=== PATIENT | female | born 1930 | race Caucasian/White ===

== ENCOUNTER 2016-11-01 10:30 | Inpatient (IN) | payer MEDICARE, OTHER ==
[~2016-11-01] VITALS: Ht 144.8 cm; Wt 47.0 kg
[~2016-11-01 10:30] MED LIST: DEXL60CA2 PO; FER325 PO; ISOS30TA5 PO; METO200T4 PO; NIT4 SL; RAMI2.5C36 PO; SYN75 PO
[2016-11-14 09:18] VITALS: Ht 144.8 cm; Wt 47.0 kg
[2016-11-14] MEDS ORDERED: D5W-0.45 NACL + KCL 20 MEQ 1,000 ML IV SCH (15:00)
[2016-11-15] VITALS (25 sets, daily range): BP systolic 96–146; BP diastolic 48–75; PULSE 50–93; RESP 11–20
[2016-11-15] MEDS ORDERED: AMPICILLIN/SULB 3 GM/NS (PMX) 100 ML IVPB SCH (06:30)
[2016-11-15] MEDS ORDERED: ETOMIDATE 20 MG INJ ONE (07:00)
[2016-11-15] MEDS ORDERED: ROCURONIUM 50 MG INJ ONE (07:00)
[2016-11-15] MEDS ORDERED: GLYCOPYRROLATE 0.4 MG INJ ONE (07:00)
[2016-11-15] MEDS ORDERED: PROPOFOL 200 MG INJ ONE (07:00)
[2016-11-15] MEDS ORDERED: LIDOCAINE 2% (SDV) 5 ML INJ ONE (07:00)
[2016-11-15] MEDS ORDERED: SUCCINYLCHOLINE CHLORIDE 100 MG/5 ML SYG IV ONE (07:00)
[2016-11-15] MEDS ORDERED: NEOSTIGMINE 3 MG/3 ML SYRINGE ONE (07:00)
[2016-11-15] MEDS ORDERED: FENTAnyl 50 MCG/ML VIAL ONE (07:08)
--- NOTE | 2016-11-15 07:21 | HPN ---
Date/Time of Note Date/Time of Note DATE: 11/15/16 TIME: 07:21 Interval H&P Admission Note Pt. seen H&P reviewed: No system changes Pt. seen H&P reviewed. No system changes (I attest that I have seen and examined the patient and reviewed the operation in detail, as well as its risks , benefits and alternatives of the operation). I attest that I have seen and examined the patient and reviewed in detail the operation, and its associated risks, benefits and alternative. I have answered all the patient's questions to the best of my ability and the patient wishes to proceed. Please refer to rest of electronic medical record for additional updates. MILENA VIRK M.D. Nov 15, 2016 07:21
[2016-11-15 07:39] LABS: BASOPHIL # 0.1 10^3/ul (0.0-0.1); EOSINOPHILS # 0.3 10^3/ul (0.0-0.5); EOSINOPHILS % 4.9 % (0.0-7.0); HEMATOCRIT 44.4 % (37.0-47.0); HEMOGLOBIN 15.2 g/dl (12.0-16.0); LYMPHOCYTES # 1.2 10^3/ul (0.8-2.9); LYMPHOCYTES % 23.2 % (15.0-51.0); MEAN CORPUSCULAR HEMOGLOBIN 30.3 pg (29.0-33.0); MEAN CORPUSCULAR HGB CONC 34.2 g/dl (32.0-37.0); MEAN CORPUSCULAR VOLUME 88.6 fl (82.0-101.0); MEAN PLATELET VOLUME 9.2 fl (7.4-10.4); MONOCYTE # 0.7 10^3/ul (0.3-0.9); MONOCYTES % 12.6 % (0.0-11.0); NEUTROPHILS % 58.3 % (39.0-77.0); PLATELET COUNT 217 10^3/UL (140-440); RED BLOOD COUNT 5.01 10^6/ul (4.20-5.40); RED CELL DISTRIBUTION WIDTH 13.9 % (11.5-14.5); UNCORRECTED WBC 5.2 10^3/ul (4.8-10.8); WHITE BLOOD COUNT 5.2 10^3/ul (4.8-10.8)
[2016-11-15 07:54] LABS: CONDITION 1
[2016-11-15] MEDS ORDERED: PHENYLephrine (100 MCG/ML) 5ML SYG ONE (08:03)
[2016-11-15 08:17] LABS: CALCIUM 9.2 mg/dl (8.4-10.2); CREATININE 0.67 mg/dl (0.44-1.00); POTASSIUM 3.7 mmol/L (3.5-5.1)
[2016-11-15] MEDS ORDERED: MEPERIDINE 25 MG INJ IV PRN (09:00)
[2016-11-15] MEDS ORDERED: DIPHENHYDRAMINE 50 MG INJ IV PRN (09:00)
[2016-11-15] MEDS ORDERED: FENTAnyl 50 MCG/ML VIAL IV PRN (09:00)
[2016-11-15] MEDS ORDERED: HYDROmorphONE (0.2 MG/ML) 10ML SYG IV PRN ×2 (09:00)
[2016-11-15] MEDS ORDERED: ONDANSETRON 4 MG INJ IV PRN (09:00)
[2016-11-15 09:04] LABS: ADD UMIC YES; URINE BILIRUBIN (Dip) NEGATIVE (NEGATIVE); URINE BLOOD (Dip) TRACE (NEGATIVE); URINE COLOR LT. YELLOW (YELLOW); URINE GLUCOSE (Dip) NEGATIVE (NEGATIVE); URINE KETONES (Dip) NEGATIVE (NEGATIVE); URINE LEUKOCYTE ESTERASE (Dip) NEGATIVE (NEGATIVE); URINE NITRITE (Dip) NEGATIVE (NEGATIVE); URINE TOTAL PROTEIN (Dip) NEGATIVE (NEGATIVE); URINE UROBILINOGEN (Dip) 0.2 E.U./dL (0.1-1.0)
[2016-11-15 09:57] LABS: BACTERIA,URINE FEW
[2016-11-15] MEDS ORDERED: HYDROCODONE/APAP (5/325) TAB PO PRN (11:00)
[2016-11-15] MEDS ORDERED: HYDROmorphONE 1 MG/ML SYG IV PRN (11:00)
[2016-11-15] MEDS ORDERED: NA PHOSPHATE/BIPHOS 133 ML ENEMA PR PRN (11:00)
[2016-11-15] MEDS ORDERED: DOCUSATE SODIUM 100 MG CAP PO PRN (11:00)
[2016-11-15] MEDS ORDERED: BISACODYL 10 MG SUPP PR PRN (11:00)
[2016-11-15] MEDS: FENTAnyl 50 MCG/ML VIAL IV PRN ×3 (11:01→11:37)
[2016-11-15] MEDS: HYDROmorphONE (0.2 MG/ML) 10ML SYG IV PRN ×3 (11:02→11:38)
--- NOTE | 2016-11-15 11:12 | OPR ---
Date/Time of Note Date/Time of Note DATE: 11/15/16 TIME: 11:06 Operative Report Operative Findings [facility] INPATIENT OPERATIVE NOTE PLACE OF SERVICE: [facility] [place] DATE OF SURGERY: 11/15/2016 PREOPERATIVE DIAGNOSIS: 1. Biopsy-proven rectal cancer, moderately differentiated, grade 2. Perirectal lymph node involvement on staging axial images that included CT scan of the abdomen and pelvis. Clinical stage IIIc (T3b N2 M0). CEA 1.9; s/p completion of chemoradiation (5040 with concurrent Xeloda) ending on 05/11/16. Abdominal and pelvic MRI with IV and oral contrast on 07/07/16 showed slight decrease in size of mass and no obvious or new lymphadenopathy. S/p an otherwise uncomplicated but challenging oncologic laparoscopic laparoscopic hand-assisted very low anterior resection with takedown of splenic flexure of the colon with primary anastomosis and diverting loop ileostomy was performed with findings of rectal tumor approximately 3-4 cm from the anal verge without evidence of obvious metastatic disease on 08/16/16. 2. Breast cancer 2011. Status post mastectomy and hormonal therapy (no radiation therapy or chemotherapy per patient). 3. Anxiety 4. Hypertension 5. Coronary artery disease, status post angioplasty and stenting 3 approximate 10 years ago; transesophageal echocardiography without significant pathology per report 6. History of thyroid disease 7. Dyslipidemia 8. Hypertension 9. Arthritis 10. Mastectomy as above 11. Recent colonoscopy POSTOPERATIVE DIAGNOSIS: 1. Biopsy-proven rectal cancer, moderately differentiated, grade 2. Perirectal lymph node involvement on staging axial images that included CT scan of the abdomen and pelvis. Clinical stage IIIc (T3b N2 M0). CEA 1.9; s/p completion of chemoradiation (5040 with concurrent Xeloda) ending on 05/11/16. Abdominal and pelvic MRI with IV and oral contrast on 07/07/16 showed slight decrease in size of mass and no obvious or new lymphadenopathy. S/p an otherwise uncomplicated but challenging oncologic laparoscopic laparoscopic hand-assisted very low anterior resection with takedown of splenic flexure of the colon with primary anastomosis and diverting loop ileostomy was performed with findings of rectal tumor approximately 3-4 cm from the anal verge without evidence of obvious metastatic disease on 08/16/16. 2. Breast cancer 2011. Status post mastectomy and hormonal therapy (no radiation therapy or chemotherapy per patient). 3. Anxiety 4. Hypertension 5. Coronary artery disease, status post angioplasty and stenting 3 approximate 10 years ago; transesophageal echocardiography without significant pathology per report 6. History of thyroid disease 7. Dyslipidemia 8. Hypertension 9. Arthritis 10. Mastectomy as above 11. Recent colonoscopy OPERATION: Ileostomy takedown SURGEON: Milena Tejada M.D. CHIEF RELAY TESTER: 1. WICHO Leary ANESTHESIA: General endotracheal tube anesthesia ANESTHESIOLOGIST: Jitendra Cordon M.D. BRIEF SUMMARY: An otherwise uncomplicated ileostomy takedown was done. BRIEF HISTORY: Patient is a very-pleasant 85-year-old lady with past medical history significant for breast cancer in the past and newly diagnosed rectal cancer, who was initially referred to us for surgical consultation regarding management of rectal cancer in March 2016. S/p completion of chemoradiation (5040 with concurrent Xeloda) ending on 05/11/16. Abdominal and pelvic MRI with IV and oral contrast on 07/07/16 showed slight decrease in size of mass and no obvious or new lymphadenopathy. S/p an otherwise uncomplicated but challenging oncologic laparoscopic laparoscopic hand-assisted very low anterior resection with takedown of splenic flexure of the colon with primary anastomosis and diverting loop ileostomy was performed with findings of rectal tumor approximately 3-4 cm from the anal verge without evidence of obvious metastatic disease on . Drain d/c'd 08/22/16. Uneventful recovery with discharge to SNF on 08/24/16. On the subsequent preoperative visit with me, the patient was doing well. I recommended takedown of her ileostomy. We reviewed the operation in detail as well as the risks, benefits, alternatives, and expected outcomes of this operation. After careful consideration of all the risks, benefits, and alternatives, the patient and family appeared to understand those risks and wished to proceed with surgery. For a detailed report of my consultation with patient and family, please refer to my separate consultation note. STATEMENT OF THE INFORMED CONSENT: The patient and family appeared to understand the risks of the operation to include, but not be limited to risk of postoperative pain and scar tissue, possible infection or bleeding requiring other interventions such as opening the wound, placement of drainage catheters, or other operative interventions; possible injury to surrounding to structures including bowel, bladder, intestine, or blood vessels, or solid organs such as liver, kidney, or pancreas requiring other interventions or procedures; possible leakage of bowel contents from anastomotic sites or other inadvertent unrecognized enterotomy sites, causing significant increase in morbidity and mortality and requiring multiple interventions including but not limited to, placement of drainage catheters, imaging studies, as well as operative interventions; possible other source of sepsis such as urinary tract infections or pneumonias, or other sources of potentially life threatening problems such as deep venous thrombus formation causing pulmonary embolism, myocardial arrhythmias and infarctions, and even . We also briefly discussed the potential need to receive blood products and their potential complications of blood transfusion reactions, transmission of infections, or other complications. After careful consideration of all their options, the patient and family appeared to understand and wished to proceed with surgery. DESCRIPTION OF PROCEDURE: After obtaining informed consent, the patient was brought into the operating room and was placed in a normal supine position, where successful general endotracheal tube anesthesia was performed. I placed a small 5-0 Prolene suture 3 to close the ileostomy site due to his productive nature. The patient's abdominal skin was then prepped and draped, from the nipple line down to the level of the groins, in the usual sterile fashion. Intravenous access was already in place, and appropriately chosen and dosed prophylactic intravenous antimicrobials were administered. We then called a surgical time-out where patient's identification, date of , nature of the operation, allergies, presence of intravenous antimicrobials, presence of needed equipment, and any other concerns were reviewed and agreed upon by all members of the operating room team. We then started the operation by taking down the adhesions between the size of the bowel and the skin and subsequently to its surrounding attachments of the abdominal wall contents using combination of cautery, cold scissors as well as blunt dissection. This proved to be rather challenging given the significant amount of adhesions present. Small bleeders were controlled with cautery. Eventually, we were able to delineate the edges of the fascia and completely free the attachments between the loop of bowel and the fascia to be able to perform an end-to-end handsewn anastomosis using 4-0 PDS suture in a running fashion reinforced by interrupted 3-0 silk suture pop offs on SH needle in a Lembert fashion. We then dropped the bowel back into the abdominal cavity and ensured adequate hemostasis and bowel stasis prior to closure of the ileostomy defect site using interrupted [id number] #1 PDS sutures (8). This came together very nicely. We irrigated the wound site with copious amounts of normal saline and packed the area with saline soaked gauze. Light dressing was applied. At the end of the operation, both the sponge count and needle count were reportedly correct x2. The patient tolerated the procedure without any reported complications. ESTIMATED BLOOD LOSS: Less than 5 mL. BLOOD OR BLOOD PRODUCT TRANSFUSIONS: None to my knowledge. SPECIMENS: 1. Ileostomy site refreshed edges from both proximal and distal sense for permanent sections COMPLICATIONS: None. DISPOSITION: Recovery area. Disclaimer: Inadvertent spelling and grammatical errors are likely due to EHR/ dictation software use and do not reflect on the quality of delivered patient care. MILENA TEJADA M.D. Nov 15, 2016 11:12
[2016-11-15 12:42] LABS: INR 0.96; PROTIME 12.8 Sec (12.2-14.2)
[2016-11-15 12:43] LABS: PARTIAL THROMBOPLASTIN TIME 29.7 Sec (25.0-35.0)
[2016-11-15] MEDS: HYDROmorphONE 1 MG/ML SYG IV PRN (16:41)
[2016-11-15] MEDS: D5W-0.45 NACL + KCL 20 MEQ 1,000 ML IV SCH (16:41)
--- NOTE | 2016-11-15 17:16 | CONS ---
DATE OF ADMISSION: 11/15/2016 DATE OF CONSULTATION: 11/15/2016 REQUESTING PHYSICIAN: Surgery team. CHIEF COMPLAINT: This is an 86-year-old female who was brought in for ileostomy takedown. HISTORY OF PRESENT ILLNESS: An 86-year-old female with past medical history of hypothyroidism, rectal cancer and breast cancer in the past status post mastectomy and radiation, chemotherapy treatment in the past, GERD, essential hypertension, high cholesterol, arthritis, coronary artery disease status post stent x3 placed 10 years ago, and questionable congestive heart failure who had an ileostomy takedown performed by surgery team earlier today. The patient presently has some abdominal pain symptoms, but no nausea, vomiting, no fevers or chills, no headaches or dizziness, loss of consciousness. We were asked by the surgery team for medical management to help care for this patient. PAST MEDICAL HISTORY: As stated above. ALLERGIES: NO KNOWN DRUG ALLERGIES. HOME MEDICATIONS: Based on records, she is on: 1. Ferrous sulfate 325 mg t.i.d. 2. Imdur 30 mg daily. 3. Toprol-XL 200 mg daily. 4. Nitroglycerin 0.4 mg sublingual every 5 minutes p.r.n. 5. Ramipril 2.5 mg daily. 6. Dexilant 50 mg daily. 7. Synthroid 75 mcg before breakfast. PAST SURGICAL HISTORY: Prior laparoscopic very low anterior resection and takedown of the splenic flexure of the colon and diverting loop ileostomy in the past, and right mastectomy in the past. FAMILY HISTORY: Noncontributory. SOCIAL HISTORY: Negative for smoking, drinking, or IV drug abuse. PHYSICAL EXAMINATION: VITAL SIGNS: T-max 99.5, presently 97.1, pulse 54 to 64, respirations 13 to 19 , blood pressure is 96 to 115 systolic over 40 to 57 diastolic, saturating at 93 % to 97% on 2 liters nasal cannula. GENERAL: The patient is lying in bed, answering questions appropriately, complaining of some abdominal pain, otherwise alert, no acute distress. HEENT: Pupils equal, round, react to light. Extraocular muscles intact. NECK: Supple. No thyromegaly. LUNGS: Clear to auscultation bilaterally. CARDIOVASCULAR: S1, S2 heard. No rubs or gallops. ABDOMEN: Some tenderness to palpation near surgical site, but otherwise clean, dry, and intact. No rebound or guarding. MUSCULOSKELETAL: No lower extremity edema bilaterally. NEUROLOGIC: No focal deficits. LABORATORIES: Basic metabolic panel was normal. The CBC is normal. Coags are normal. UA shows negative nitrites, negative leukocyte esterase. ASSESSMENT AND PLAN: This is an 86-year-old female with prior history of rectal cancer status post ileostomy takedown earlier today. 1. Rectal cancer status post ileostomy takedown. Continue to follow postoperative recommendations from surgery team including pain control medications and PT. Monitor labs in the morning as ordered. 2. History of breast cancer, prior mastectomy and radiation, chemotherapy in the past. Continue to monitor for now. 3. History of hypertension. Blood pressure is on the low side, so will hold off on continuing her home medicines. We will continue to hold those for now. 4. High cholesterol. No present issues. Continue to monitor for now. 5. Hypothyroidism. Consider restarting the patient's Synthroid medication as well. 6. History of coronary artery disease status post cardiac stent placement 10 years ago. No present issues. Continue to monitor for now. 7. Gastrointestinal prophylaxis. She is on H2 zara. 8. Deep venous thrombosis prophylaxis. She is on Lovenox. Dictated By: ROHIT AVALOS/JENNA Conf#: [id number] DID#: [id number] CC: MILENA VIRK MD;*EndCC* MTDD
[2016-11-16 00:13] VITALS: BP 131/58; RESP 20
[2016-11-16] MEDS: D5W-0.45 NACL + KCL 20 MEQ 1,000 ML IV SCH ×3 (02:51→22:40)
[2016-11-16] MEDS: HYDROmorphONE 1 MG/ML SYG IV PRN ×2 (02:52→10:22)
[2016-11-16 05:33] LABS: INR 1.07; PROTIME 13.9 Sec (12.2-14.2); PT RATIO 1.1
[2016-11-16 05:34] LABS: PARTIAL THROMBOPLASTIN TIME 31.9 Sec (25.0-35.0)
[2016-11-16 05:37] LABS: EOSINOPHILS # 0.2 10^3/ul (0.0-0.5); EOSINOPHILS % 1.9 % (0.0-7.0); HEMATOCRIT 40.6 % (37.0-47.0); HEMOGLOBIN 13.9 g/dl (12.0-16.0); LYMPHOCYTES # 0.6 10^3/ul (0.8-2.9); MEAN CORPUSCULAR HEMOGLOBIN 30.3 pg (29.0-33.0); MEAN CORPUSCULAR HGB CONC 34.1 g/dl (32.0-37.0); MEAN CORPUSCULAR VOLUME 88.9 fl (82.0-101.0); MONOCYTE # 0.8 10^3/ul (0.3-0.9); MONOCYTES % 9.4 % (0.0-11.0); NEUTROPHIL # 6.9 10^3/ul (1.6-7.5); NEUTROPHILS % 81.7 % (39.0-77.0); PLATELET COUNT 199 10^3/UL (140-440); RED BLOOD COUNT 4.57 10^6/ul (4.20-5.40); RED CELL DISTRIBUTION WIDTH 13.6 % (11.5-14.5); UNCORRECTED WBC 8.4 10^3/ul (4.8-10.8); WHITE BLOOD COUNT 8.4 10^3/ul (4.8-10.8)
[2016-11-16 05:45] LABS: POTASSIUM 4.3 mmol/L (3.5-5.1)
[2016-11-16 05:48] LABS: CREATININE 0.54 mg/dl (0.44-1.00); PHOSPHORUS 3.9 mg/dl (2.5-4.9)
[2016-11-16 05:49] LABS: CALCIUM 7.9 mg/dl (8.4-10.2); MAGNESIUM 1.4 mg/dl (1.7-2.5)
[2016-11-16 05:54] LABS: CONDITION 1
[2016-11-16 06:34] VITALS: BP 114/52; PULSE 64; RESP 17
[2016-11-16 07:00] VITALS: BP 109/51; RESP 20
[2016-11-16] MEDS: FAMOTIDINE 20 MG INJ IV SCH (10:23)
[2016-11-16] MEDS: ENOXAPARIN 40 MG/0.4 ML SYG SC SCH (10:24)
--- NOTE | 2016-11-16 12:37 | CONS ---
Date/Time of Note Date/Time of Note DATE: 11/16/16 TIME: 12:35 Consult Date/Type/Reason Admit Date/Time Nov 15, 2016 at 06:10 Initial Consult Date Subjective Pt with some pain complaints, relieved with pain meds. Objective Vital Signs Date Time Temp Pulse Resp B/P Pulse Ox O2 Delivery O2 Flow Rate FiO2 11/16/16 07:00 98.4 81 20 109/51 100 11/16/16 06:34 Nasal Cannula 2.0 Intake and Output 11/15/16 11/15/16 11/16/16 15:00 23:00 07:00 Intake Total 1800 ml 0 ml 1740 ml Output Total 100 ml 350 ml 1000 ml Balance 1700 ml -350 ml 740 ml GENERAL: The patient is lying in bed, sleeping presently, no acute distress. HEENT: Pupils equal, round, react to light. Extraocular muscles intact. NECK: Supple. No thyromegaly. LUNGS: Clear to auscultation bilaterally. CARDIOVASCULAR: S1, S2 heard. No rubs or gallops. ABDOMEN: Some tenderness to palpation near surgical site, but otherwise clean, dry, and intact. No rebound or guarding. MUSCULOSKELETAL: No lower extremity edema bilaterally. NEUROLOGIC: No focal deficits. Results/Medications Result Diagram: 11/16/1644411/16/16444 Results 24 hrs Laboratory Tests Test 11/16/16 04:45 Activated Partial Thromboplast Time 31.9 Anion Gap 12 # B-Type Natriuretic Peptide 1460 H Basophils # 0.0 Basophils % 0.0 Blood Urea Nitrogen 10 # Calcium Level 7.9 L Carbon Dioxide Level 25 Chloride Level 103 Creatinine 0.54 Eosinophils # 0.2 Eosinophils % 1.9 Glucose Level 129 Hematocrit 40.6 Hemoglobin 13.9 INR International Normalized Ratio 1.07 Lactic Acid Level 1.3 Lymphocytes # 0.6 L Lymphocytes % 7.0 L Magnesium Level 1.4 L Mean Corpuscular Hemoglobin 30.3 Mean Corpuscular Hemoglobin Concent 34.1 Mean Corpuscular Volume 88.9 Mean Platelet Volume 9.0 Monocytes # 0.8 Monocytes % 9.4 Neutrophils # 6.9 Neutrophils % 81.7 H Nucleated Red Blood Cells # 0.0 Nucleated Red Blood Cells % 0.0 Phosphorus Level 3.9 Platelet Count 199 Potassium Level 4.3 Prothrombin Time 13.9 Prothrombin Time Ratio 1.1 Red Blood Count 4.57 Red Cell Distribution Width 13.6 Sodium Level 136 White Blood Count 8.4 # Medications Current Medications Potassium Chloride/Dextrose/ Sod Cl (D5-1/2ns + KCl 20 Meq) 1,000 ml @ 100 mls/ hr Q10H IV Last administered on 11/16/16 10:23; Admin Dose 100 MLS/HR; Start at 10:53 Acetaminophen/ Hydrocodone Bitart (Hulen (5/325)) 1 tab Q4H PRN PO PAIN LEVEL 4 -7; Start 11/15/16 at 11:00 Acetaminophen/ Hydrocodone Bitart (Hulen (5/325)) 2 tab Q4H PRN PO PAIN LEVEL 7 -10; Start 11/15/16 at 11:00 Hydromorphone HCl (Dilaudid) 0.5 mg Q2 PRN IV PAIN; Start 11/15/16 at 11:00 Hydromorphone HCl (Dilaudid) 1 mg Q2 PRN IV PAIN Last administered on 11/16/16 10:22; Admin Dose 1 MG; Start 11/15/16 at 11:00 Docusate Sodium (Colace) 100 mg BID PRN PO CONSTIPATION; Start 11/15/16 at 11: 00 Bisacodyl (Dulcolax Supp) 10 mg BID PRN MD CONSTIPATION; Start 11/15/16 at 11: 00 Sodium Biphosphate/ Sodium Phosphate (Fleet Enema) 133 ml BID PRN MD CONSTIPATION; Start 11/15/16 at 11:00 Famotidine (Pepcid Iv) 20 mg DAILY IV Last administered on 11/16/16 10:23; Admin Dose 20 MG; Start 11/16/16 at 09:00 Enoxaparin Sodium (Lovenox) 40 mg DAILY SC Last administered on 11/16/16 10:24 ; Admin Dose 40 MG; Start 11/16/16 at 09:00 Assessment/Plan Chief Complaint/Hosp Course ASSESSMENT AND PLAN: 86-year-old female with prior history of rectal cancer status post ileostomy takedown POD # 2. 1. Rectal cancer status post ileostomy takedown - POD # 2. - Continue to follow postoperative recommendations from surgery team including pain control medications and PT. - Monitor labs in the morning as ordered. 2. History of breast cancer, prior mastectomy and radiation, chemotherapy in the past. - Continue to monitor for now. 3. History of hypertension. Blood pressure is low-nL. - monitor 4. High cholesterol. No present issues. - Continue to monitor for now. 5. Hypothyroidism. - Consider restarting the patient's Synthroid medication as well. 6. History of coronary artery disease status post cardiac stent placement 10 years ago. No present issues. - Continue to monitor for now. 7. Gastrointestinal prophylaxis. She is on H2 zara. 8. Deep venous thrombosis prophylaxis. She is on Lovenox. Problems: ROHIT JEFFREY Nov 16, 2016 12:37
[2016-11-16] MEDS: HYDROCODONE/APAP (5/325) TAB PO PRN (15:18)
[2016-11-16 20:02] VITALS: BP 134/63; RESP 18
--- NOTE | 2016-11-16 20:52 | PN ---
Date/Time of Note Date/Time of Note DATE: 11/16/16 TIME: 18:48 Assessment/Plan Lines/Catheters IV Catheter Type (from Nrsg): Peripheral IV Rubi in Place (from Nrsg): No Assessment/Plan Assessment/Plan [facility] Progress Note Date of Service: 11/16/16 Today's Impression & Plan: Overall doing well post op without major issues. No major wound problems. Pain control seems adequate. With above assessment, I've recommended the following for today: 1. Increase activity 2. Increase ICS 3. Dressing changes TID with assistance from wound nurse 4. Keep inhouse Thank you again for your great care of this very pleasant patient and wonderful family. If there are any questions, please feel free to call me at [phone]. TOTAL VISIT TIME: 20 minutes of which more than half was spent in [id number] discussion with the patient, possibly including family, as well as coordination of care between multiple physicians and providers. Disclaimer: Inadvertent spelling or grammatical errors are likely due to EHR/ dictation software use and do not reflect on the overall quality of patient care. Updated Clinical Summary: Patient is a very-pleasant 85-year-old lady with past medical history significant for breast cancer in the past and newly diagnosed rectal cancer, who was initially referred to us for surgical consultation regarding management of rectal cancer in March 2016. S/p completion of chemoradiation (5040 with concurrent Xeloda) ending on 05/11/16. Abdominal and pelvic MRI with IV and oral contrast on 07/07/16 showed slight decrease in size of mass and no obvious or new lymphadenopathy. S/p an otherwise uncomplicated but challenging oncologic laparoscopic laparoscopic hand-assisted very low anterior resection with takedown of splenic flexure of the colon with primary anastomosis and diverting loop ileostomy was performed with findings of rectal tumor approximately 3-4 cm from the anal verge without evidence of obvious metastatic disease on . Drain d/c'd 08/22/16. Uneventful recovery with discharge to SNF on 08/24/16. On the subsequent preoperative visit with me, the patient was doing well. S/p takedown of her ileostomy 11/15/16. Comorbidities: 1. Biopsy-proven rectal cancer, moderately differentiated, grade 2. Perirectal lymph node involvement on staging axial images that included CT scan of the abdomen and pelvis. Clinical stage IIIc (T3b N2 M0). CEA 1.9; s/p completion of chemoradiation (5040 with concurrent Xeloda) ending on 05/11/16. Abdominal and pelvic MRI with IV and oral contrast on 07/07/16 showed slight decrease in size of mass and no obvious or new lymphadenopathy. S/p an otherwise uncomplicated but challenging oncologic laparoscopic laparoscopic hand-assisted very low anterior resection with takedown of splenic flexure of the colon with primary anastomosis and diverting loop ileostomy was performed with findings of rectal tumor approximately 3-4 cm from the anal verge without evidence of obvious metastatic disease on 08/16/16. 2. Breast cancer 2011. Status post mastectomy and hormonal therapy (no radiation therapy or chemotherapy per patient). 3. Anxiety 4. Hypertension 5. Coronary artery disease, status post angioplasty and stenting 3 approximate 10 years ago; transesophageal echocardiography without significant pathology per report 6. History of thyroid disease 7. Dyslipidemia 8. Hypertension 9. Arthritis 10. Mastectomy as above 11. Recent colonoscopy Subjective: No major events or complaints; no major abd pain and under control with medications; no n/v/d; no sob or cp; - flatus; - BM; minimal activity Objective: Vitals: See below Exam: GENERAL: On exam, the patient was sitting in a chair and appeared to be comfortable and in no acute distress. ABDOMEN: Soft, nontender and nondistended. Incision drssings are clean, dry and intact without any evidence of underlying erythema, edema, discharge, or hernia. There are no peritoneal signs or guarding. SKIN: Skin appears to be pink and feels warm to touch. NEUROLOGIC: Patient is awake, alert, and follows commands appropriately. Exam/Review of Systems Vital Signs Vitals Vital Signs Date Time Temp Pulse Resp B/P Pulse Ox O2 Delivery O2 Flow Rate FiO2 11/16/16 20:02 98.2 71 18 134/63 99 11/16/16 07:45 Nasal Cannula 2.0 Intake and Output 11/15/16 11/15/16 11/16/16 15:00 23:00 07:00 Intake Total 1800 ml 0 ml 1740 ml Output Total 100 ml 350 ml 1000 ml Balance 1700 ml -350 ml 740 ml Results Result Diagram: 11/16/16 0445 11/16/16 0445 MILENA VIRK M.D. Nov 16, 2016 20:52
[2016-11-17] MEDS: D5W-0.45 NACL + KCL 20 MEQ 1,000 ML IV SCH ×3 (00:30→09:19)
[2016-11-17] MEDS: HYDROCODONE/APAP (5/325) TAB PO PRN ×3 (04:41→22:29)
[2016-11-17 08:42] VITALS: BP 144/66; RESP 18
[2016-11-17] MEDS: FAMOTIDINE 20 MG INJ IV SCH (09:19)
[2016-11-17] MEDS: ENOXAPARIN 40 MG/0.4 ML SYG SC SCH (09:29)
--- NOTE | 2016-11-17 12:01 | CONS ---
Date/Time of Note Date/Time of Note DATE: 11/17/16 TIME: 11:59 Consult Date/Type/Reason Admit Date/Time Nov 15, 2016 at 06:10 Subjective No acute events overnight. Seen by surgery team today. Objective Vital Signs Date Time Temp Pulse Resp B/P Pulse Ox O2 Delivery O2 Flow Rate FiO2 11/17/16 08:42 98.2 71 18 144/66 90 11/16/16 07:45 Nasal Cannula 2.0 Intake and Output 11/16/16 11/16/16 11/17/16 15:00 23:00 07:00 Intake Total 1400 ml 1220 ml Output Total 1200 ml Balance 200 ml 1220 ml GENERAL: The patient is lying in bed, no acute distress. HEENT: Pupils equal, round, react to light. Extraocular muscles intact. NECK: Supple. No thyromegaly. LUNGS: Clear to auscultation bilaterally. CARDIOVASCULAR: S1, S2 heard. No rubs or gallops. ABDOMEN: less tenderness to palpation near surgical site, but otherwise clean , dry, and intact. No rebound or guarding. MUSCULOSKELETAL: No lower extremity edema bilaterally. NEUROLOGIC: No focal deficits. Results/Medications Result Diagram: 11/16/165 11/16/16 0445 Medications Current Medications Potassium Chloride/Dextrose/ Sod Cl (D5-1/2ns + KCl 20 Meq) 1,000 ml @ 100 mls/ hr Q10H IV Last administered on 11/17/16 09:19; Admin Dose 100 MLS/HR; Start at 10:53 Acetaminophen/ Hydrocodone Bitart ([place] (5/325)) 1 tab Q4H PRN PO PAIN LEVEL 4 -7 Last administered on 11/17/16 09:19; Admin Dose 1 TAB; Start 11/15/16 at 11: 00 Acetaminophen/ Hydrocodone Bitart ([place] (5/325)) 2 tab Q4H PRN PO PAIN LEVEL 7 -10; Start 11/15/16 at 11:00 Hydromorphone HCl (Dilaudid) 0.5 mg Q2 PRN IV PAIN; Start 11/15/16 at 11:00 Hydromorphone HCl (Dilaudid) 1 mg Q2 PRN IV PAIN Last administered on 11/16/16 10:22; Admin Dose 1 MG; Start 11/15/16 at 11:00 Docusate Sodium (Colace) 100 mg BID PRN PO CONSTIPATION; Start 11/15/16 at 11: 00 Bisacodyl (Dulcolax Supp) 10 mg BID PRN [place] CONSTIPATION; Start 11/15/16 at 11: 00 Sodium Biphosphate/ Sodium Phosphate (Fleet Enema) 133 ml BID PRN [place] CONSTIPATION; Start 11/15/16 at 11:00 Famotidine (Pepcid Iv) 20 mg DAILY IV Last administered on 11/17/16 09:19; Admin Dose 20 MG; Start 11/16/16 at 09:00 Enoxaparin Sodium (Lovenox) 40 mg DAILY SC Last administered on 11/17/16 09:29 ; Admin Dose 40 MG; Start 11/16/16 at 09:00 Ferrous Sulfate (Ferrous Sulfate (Ec)) 325 mg TID PO ; Start 11/17/16 at 13:00; Status UNV Isosorbide Mononitrate (Imdur) 30 mg DAILY PO ; Start 11/18/16 at 09:00; Status UNV Metoprolol Succinate (Toprol Xl) 200 mg DAILY PO ; Start 11/18/16 at 09:00; Status UNV Miscellaneous Information 60 mg 60 mg DAILY PO ; Start 11/18/16 at 09:00; Status UNV Magnesium Sulfate (Magnesium Sulfate 2 Gm/50 ml) 50 ml @ 25 mls/hr ONCE ONCE IVPB ; Start 11/17/16 at 12:00; Stop 11/17/16 at 13:59; Status UNV Assessment/Plan Chief Complaint/Hosp Course ASSESSMENT AND PLAN: 86-year-old female with prior history of rectal cancer status post ileostomy takedown POD # 2. 1. Rectal cancer status post ileostomy takedown - POD # 3. - Continue to follow postoperative recommendations from surgery team including pain control medications and PT. - Monitor labs in the morning as ordered. 2. History of breast cancer, prior mastectomy and radiation, chemotherapy in the past. - Continue to monitor for now. 3. History of hypertension. Blood pressure is low-nL. - monitor 4. High cholesterol. No present issues. - Continue to monitor for now. 5. Hypothyroidism. - will restart Synthroid medication as well. 6. History of coronary artery disease status post cardiac stent placement 10 years ago. No present issues. - Continue to monitor for now. Will restart home meds 7. Gastrointestinal prophylaxis. She is on H2 zara. 8. Deep venous thrombosis prophylaxis. She is on Lovenox. 9. low mag - replete Problems: ROHIT JEFFREY Nov 17, 2016 12:01
[2016-11-17] MEDS ORDERED: MAGNESIUM SULFATE 2 GM/50 ML 50 ML IVPB ONE (14:30)
[2016-11-17] MEDS: FERROUS SULFATE (EC) 325 MG TAB PO SCH ×2 (14:56→20:51)
--- NOTE | 2016-11-17 16:26 | PN ---
Date/Time of Note Date/Time of Note DATE: 11/17/16 TIME: 16:23 Assessment/Plan Lines/Catheters IV Catheter Type (from Nrsg): Peripheral IV Rubi in Place (from Nrsg): No Assessment/Plan Assessment/Plan [facility] Progress Note Date of Service: 11/17/16 Today's Impression & Plan: Overall doing well post op without major issues. No major wound problems. Pain control seems adequate. Awaiting further return of bowel function. Appreciate wound nurse input and care. With above assessment, I've recommended the following for today: 1. Increase activity 2. Increase ICS 3. Dressing changes TID with assistance from wound nurse; agree with wound vac placement and outpatient arrangement for home health 4. Keep inhouse Thank you again for your great care of this very pleasant patient and wonderful family. If there are any questions, please feel free to call me at [phone]. TOTAL VISIT TIME: 20 minutes of which more than half was spent in [id number] discussion with the patient, possibly including family, as well as coordination of care between multiple physicians and providers. Disclaimer: Inadvertent spelling or grammatical errors are likely due to EHR/ dictation software use and do not reflect on the overall quality of patient care. Updated Clinical Summary: Patient is a very-pleasant 85-year-old lady with past medical history significant for breast cancer in the past and newly diagnosed rectal cancer, who was initially referred to us for surgical consultation regarding management of rectal cancer in March 2016. S/p completion of chemoradiation (5040 with concurrent Xeloda) ending on 05/11/16. Abdominal and pelvic MRI with IV and oral contrast on 07/07/16 showed slight decrease in size of mass and no obvious or new lymphadenopathy. S/p an otherwise uncomplicated but challenging oncologic laparoscopic laparoscopic hand-assisted very low anterior resection with takedown of splenic flexure of the colon with primary anastomosis and diverting loop ileostomy was performed with findings of rectal tumor approximately 3-4 cm from the anal verge without evidence of obvious metastatic disease on . Drain d/c'd 08/22/16. Uneventful recovery with discharge to SNF on 08/24/16. On the subsequent preoperative visit with me, the patient was doing well. S/p takedown of her ileostomy 11/15/16. Comorbidities: 1. Biopsy-proven rectal cancer, moderately differentiated, grade 2. Perirectal lymph node involvement on staging axial images that included CT scan of the abdomen and pelvis. Clinical stage IIIc (T3b N2 M0). CEA 1.9; s/p completion of chemoradiation (5040 with concurrent Xeloda) ending on 05/11/16. Abdominal and pelvic MRI with IV and oral contrast on 07/07/16 showed slight decrease in size of mass and no obvious or new lymphadenopathy. S/p an otherwise uncomplicated but challenging oncologic laparoscopic laparoscopic hand-assisted very low anterior resection with takedown of splenic flexure of the colon with primary anastomosis and diverting loop ileostomy was performed with findings of rectal tumor approximately 3-4 cm from the anal verge without evidence of obvious metastatic disease on 08/16/16. 2. Breast cancer 2011. Status post mastectomy and hormonal therapy (no radiation therapy or chemotherapy per patient). 3. Anxiety 4. Hypertension 5. Coronary artery disease, status post angioplasty and stenting 3 approximate 10 years ago; transesophageal echocardiography without significant pathology per report 6. History of thyroid disease 7. Dyslipidemia 8. Hypertension 9. Arthritis 10. Mastectomy as above 11. Recent colonoscopy Subjective: No major events or complaints; no major abd pain and under control with medications; no n/v/d; no sob or cp; - flatus; - BM; minimal activity Objective: Vitals: See below Exam: GENERAL: On exam, the patient was laying in bed and appeared to be comfortable and in no acute distress. ABDOMEN: Soft, nontender and nondistended. Incision drssings are clean, dry and intact without any evidence of underlying erythema, edema, discharge, or hernia. There are no peritoneal signs or guarding. SKIN: Skin appears to be pink and feels warm to touch. NEUROLOGIC: Patient is awake, alert, and follows commands appropriately. Exam/Review of Systems Vital Signs Vitals Vital Signs Date Time Temp Pulse Resp B/P Pulse Ox O2 Delivery O2 Flow Rate FiO2 11/17/16 08:42 98.2 71 18 144/66 90 11/16/16 07:45 Nasal Cannula 2.0 Intake and Output 11/16/16 11/16/16 11/17/16 15:00 23:00 07:00 Intake Total 1400 ml 1220 ml Output Total 1200 ml Balance 200 ml 1220 ml Results Result Diagram: 11/16/16 0445 11/16/16 0445 MILENA VIRK M.D. Nov 17, 2016 16:26
[2016-11-17 20:03] VITALS: BP 133/70; RESP 20
[2016-11-18 01:00] VITALS: BP 110/56; PULSE 68; RESP 18
[2016-11-18 05:11] VITALS: BP 118/59; PULSE 72; RESP 18
[2016-11-18 06:02] LABS: BASOPHILS % 0.4 % (0.0-2.0); EOSINOPHILS # 0.4 10^3/ul (0.0-0.5); EOSINOPHILS % 9.6 % (0.0-7.0); HEMATOCRIT 41.9 % (37.0-47.0); HEMOGLOBIN 14.2 g/dl (12.0-16.0); LYMPHOCYTES # 1.1 10^3/ul (0.8-2.9); LYMPHOCYTES % 24.7 % (15.0-51.0); MEAN CORPUSCULAR HEMOGLOBIN 30.3 pg (29.0-33.0); MEAN CORPUSCULAR VOLUME 89.2 fl (82.0-101.0); MONOCYTE # 0.7 10^3/ul (0.3-0.9); MONOCYTES % 15.8 % (0.0-11.0); NEUTROPHIL # 2.2 10^3/ul (1.6-7.5); NEUTROPHILS % 49.5 % (39.0-77.0); PLATELET COUNT 214 10^3/UL (140-440); RED CELL DISTRIBUTION WIDTH 13.5 % (11.5-14.5); UNCORRECTED WBC 4.4 10^3/ul (4.8-10.8); WHITE BLOOD COUNT 4.4 10^3/ul (4.8-10.8)
[2016-11-18 06:05] LABS: PHOSPHORUS 3.3 mg/dl (2.5-4.9)
[2016-11-18 06:18] LABS: POTASSIUM 4.2 mmol/L (3.5-5.1)
[2016-11-18 06:21] LABS: CREATININE 0.58 mg/dl (0.44-1.00)
[2016-11-18 06:22] LABS: CALCIUM 8.4 mg/dl (8.4-10.2)
[2016-11-18] MEDS: LEVOTHYROXINE 75 MCG TAB PO SCH (06:28)
[2016-11-18] MEDS: PANTOPRAZOLE (EC) 40 MG TAB PO SCH (06:28)
[2016-11-18 06:42] LABS: CONDITION 1; LH ANALYZER COMMENTS 1
[2016-11-18 08:00] VITALS: BP 121/57; RESP 18
[2016-11-18] MEDS: FAMOTIDINE 20 MG INJ IV SCH (08:59)
[2016-11-18] MEDS: ISOSORBIDE MONONITRATE(SR)30 MG TAB PO SCH (09:00)
[2016-11-18] MEDS: METOPROLOL (XL) 100 MG TAB PO SCH (09:00)
[2016-11-18] MEDS: FERROUS SULFATE (EC) 325 MG TAB PO SCH ×3 (09:01→20:42)
[2016-11-18] MEDS: ENOXAPARIN 40 MG/0.4 ML SYG SC SCH (09:07)
[2016-11-18] MEDS: D5W-0.45 NACL + KCL 20 MEQ 1,000 ML IV SCH (11:23)
[2016-11-18 12:00] VITALS: BP 122/74; PULSE 85; RESP 17
--- NOTE | 2016-11-18 12:54 | CONS ---
Date/Time of Note Date/Time of Note DATE: 11/18/16 TIME: 12:51 Consult Date/Type/Reason Admit Date/Time Nov 15, 2016 at 06:10 Subjective Seen by surgery team, no acute events overnight. Objective Vital Signs Date Time Temp Pulse Resp B/P Pulse Ox O2 Delivery O2 Flow Rate FiO2 11/18/16 08:00 98.6 89 18 121/57 92 11/18/16 05:11 Room Air 11/16/16 07:45 2.0 Intake and Output 11/17/16 11/17/16 11/18/16 15:00 23:00 07:00 Intake Total 1150 ml 520 ml Output Total 650 ml Balance 1150 ml -130 ml GENERAL: The patient is lying in bed, no acute distress. HEENT: Pupils equal, round, react to light. Extraocular muscles intact. NECK: Supple. No thyromegaly. LUNGS: Clear to auscultation bilaterally. CARDIOVASCULAR: S1, S2 heard. No rubs or gallops. ABDOMEN: less tenderness to palpation, wound vac in place, otherwise clean, dry , and intact. No rebound or guarding. MUSCULOSKELETAL: No lower extremity edema bilaterally. NEUROLOGIC: No focal deficits. Results/Medications Result Diagram: 11/18/1644411/18/16444 Results 24 hrs Laboratory Tests Test 11/18/16 04:45 Anion Gap 15 Basophils # 0.0 Basophils % 0.4 Blood Urea Nitrogen 6 L Calcium Level 8.4 Carbon Dioxide Level 23 Chloride Level 105 Creatinine 0.58 Eosinophils # 0.4 Eosinophils % 9.6 H Glucose Level 104 Hematocrit 41.9 Hemoglobin 14.2 Lymphocytes # 1.1 Lymphocytes % 24.7 Magnesium Level 2.0 Mean Corpuscular Hemoglobin 30.3 Mean Corpuscular Hemoglobin Concent 34.0 Mean Corpuscular Volume 89.2 Mean Platelet Volume 9.0 Monocytes # 0.7 Monocytes % 15.8 H Neutrophils # 2.2 Neutrophils % 49.5 Nucleated Red Blood Cells # 0.0 Nucleated Red Blood Cells % 0.0 Phosphorus Level 3.3 Platelet Count 214 Potassium Level 4.2 Red Blood Count 4.70 Red Cell Distribution Width 13.5 Sodium Level 139 White Blood Count 4.4 #L Medications Current Medications Potassium Chloride/Dextrose/ Sod Cl (D5-1/2ns + KCl 20 Meq) 1,000 ml @ 100 mls/ hr Q10H IV Last administered on 11/18/16 11:23; Admin Dose 100 MLS/HR; Start at 10:53 Acetaminophen/ Hydrocodone Bitart ([place] (5/325)) 1 tab Q4H PRN PO PAIN LEVEL 4 -7 Last administered on 11/17/16 22:29; Admin Dose 1 TAB; Start 11/15/16 at 11: 00 Acetaminophen/ Hydrocodone Bitart ([place] (5/325)) 2 tab Q4H PRN PO PAIN LEVEL 7 -10; Start 11/15/16 at 11:00 Hydromorphone HCl (Dilaudid) 0.5 mg Q2 PRN IV PAIN; Start 11/15/16 at 11:00 Hydromorphone HCl (Dilaudid) 1 mg Q2 PRN IV PAIN Last administered on 11/16/16 10:22; Admin Dose 1 MG; Start 11/15/16 at 11:00 Docusate Sodium (Colace) 100 mg BID PRN PO CONSTIPATION; Start 11/15/16 at 11: 00 Bisacodyl (Dulcolax Supp) 10 mg BID PRN [place] CONSTIPATION; Start 11/15/16 at 11: 00 Sodium Biphosphate/ Sodium Phosphate (Fleet Enema) 133 ml BID PRN [place] CONSTIPATION; Start 11/15/16 at 11:00 Famotidine (Pepcid Iv) 20 mg DAILY IV Last administered on 11/18/16 08:59; Admin Dose 20 MG; Start 11/16/16 at 09:00 Enoxaparin Sodium (Lovenox) 40 mg DAILY SC Last administered on 11/18/16 09:07 ; Admin Dose 40 MG; Start 11/16/16 at 09:00 Ferrous Sulfate (Ferrous Sulfate (Ec)) 325 mg TID PO Last administered on 12:45; Admin Dose 325 MG; Start 11/17/16 at 14:00 Isosorbide Mononitrate (Imdur) 30 mg DAILY PO Last administered on 11/18/16 09: 00; Admin Dose 30 MG; Start 11/18/16 at 09:00 Metoprolol Succinate (Toprol Xl) 200 mg DAILY PO Last administered on 11/18/16 09:00; Admin Dose 200 MG; Start 11/18/16 at 09:00 Pantoprazole (Protonix Tab) 40 mg DAILY@06 PO Last administered on 11/18/16t 06: 28; Admin Dose 40 MG; Start 11/18/16 at 06:00 Assessment/Plan Chief Complaint/Hosp Course ASSESSMENT AND PLAN: 86-year-old female with prior history of rectal cancer status post ileostomy takedown POD # 4. 1. Rectal cancer status post ileostomy takedown - POD # 4. - Continue to follow postoperative recommendations from surgery team including pain control medications and PT. - Monitor labs in the morning as ordered. 2. History of breast cancer, prior mastectomy and radiation, chemotherapy in the past. - Continue to monitor for now. 3. History of hypertension. Blood pressure is stable. - monitor 4. High cholesterol. No present issues. - Continue to monitor for now. 5. Hypothyroidism. - continue Synthroid medication as well. 6. History of coronary artery disease status post cardiac stent placement 10 years ago. No present issues. - Continue to monitor for now. 7. Gastrointestinal prophylaxis. She is on H2 zara. 8. Deep venous thrombosis prophylaxis. She is on Lovenox. We will continue to follow. Problems: ROHIT JEFFREY Nov 18, 2016 12:54
--- NOTE | 2016-11-18 14:26 | PN ---
Date/Time of Note Date/Time of Note DATE: 11/18/16 TIME: 14:23 Assessment/Plan Lines/Catheters IV Catheter Type (from Nrsg): Peripheral IV Rubi in Place (from Nrsg): No Assessment/Plan Assessment/Plan [facility] Progress Note Date of Service: 11/18/16 Today's Impression & Plan: Overall doing well post op without major issues. No major wound problems. Pain control seems adequate. Appreciate wound nurse input and care. Likely d/c home with home health tomorrow evening. With above assessment, I've recommended the following for today: 1. Increase activity 2. Increase ICS 3. Cont dressing changes TID with assistance from wound nurse; agree with wound vac placement and outpatient arrangement for home health 4. Saline lock IV and oral conversion 5. Possible d/c home tomorrow Thank you again for your great care of this very pleasant patient and wonderful family. If there are any questions, please feel free to call me at [phone]. TOTAL VISIT TIME: 20 minutes of which more than half was spent in [id number] discussion with the patient, possibly including family, as well as coordination of care between multiple physicians and providers. Disclaimer: Inadvertent spelling or grammatical errors are likely due to EHR/ dictation software use and do not reflect on the overall quality of patient care. Updated Clinical Summary: Patient is a very-pleasant 85-year-old lady with past medical history significant for breast cancer in the past and newly diagnosed rectal cancer, who was initially referred to us for surgical consultation regarding management of rectal cancer in March 2016. S/p completion of chemoradiation (5040 with concurrent Xeloda) ending on 05/11/16. Abdominal and pelvic MRI with IV and oral contrast on 07/07/16 showed slight decrease in size of mass and no obvious or new lymphadenopathy. S/p an otherwise uncomplicated but challenging oncologic laparoscopic laparoscopic hand-assisted very low anterior resection with takedown of splenic flexure of the colon with primary anastomosis and diverting loop ileostomy was performed with findings of rectal tumor approximately 3-4 cm from the anal verge without evidence of obvious metastatic disease on . Drain d/c'd 08/22/16. Uneventful recovery with discharge to SNF on 08/24/16. On the subsequent preoperative visit with me, the patient was doing well. S/p takedown of her ileostomy 11/15/16. Comorbidities: 1. Biopsy-proven rectal cancer, moderately differentiated, grade 2. Perirectal lymph node involvement on staging axial images that included CT scan of the abdomen and pelvis. Clinical stage IIIc (T3b N2 M0). CEA 1.9; s/p completion of chemoradiation (5040 with concurrent Xeloda) ending on 05/11/16. Abdominal and pelvic MRI with IV and oral contrast on 07/07/16 showed slight decrease in size of mass and no obvious or new lymphadenopathy. S/p an otherwise uncomplicated but challenging oncologic laparoscopic laparoscopic hand-assisted very low anterior resection with takedown of splenic flexure of the colon with primary anastomosis and diverting loop ileostomy was performed with findings of rectal tumor approximately 3-4 cm from the anal verge without evidence of obvious metastatic disease on 08/16/16. 2. Breast cancer 2011. Status post mastectomy and hormonal therapy (no radiation therapy or chemotherapy per patient). 3. Anxiety 4. Hypertension 5. Coronary artery disease, status post angioplasty and stenting 3 approximate 10 years ago; transesophageal echocardiography without significant pathology per report 6. History of thyroid disease 7. Dyslipidemia 8. Hypertension 9. Arthritis 10. Mastectomy as above 11. Recent colonoscopy Subjective: No major events or complaints; had a better night; no major abd pain and under control with medications; no n/v; + small diarrhea; no sob or cp; + flatus; + BM ; minimal activity Objective: Vitals: See below Exam: GENERAL: On exam, the patient was laying in bed and appeared to be comfortable and in no acute distress. ABDOMEN: Soft, nontender and nondistended. Incision wound vac in place without any evidence of underlying erythema, edema, discharge, or hernia. There are no peritoneal signs or guarding. SKIN: Skin appears to be pink and feels warm to touch. NEUROLOGIC: Patient is awake, alert, and follows commands appropriately. Exam/Review of Systems Vital Signs Vitals Vital Signs Date Time Temp Pulse Resp B/P Pulse Ox O2 Delivery O2 Flow Rate FiO2 11/18/16 08:00 98.6 89 18 121/57 92 11/18/16 05:11 Room Air 11/16/16 07:45 2.0 Intake and Output 11/17/16 11/17/16 11/18/16 15:00 23:00 07:00 Intake Total 1150 ml 520 ml Output Total 650 ml Balance 1150 ml -130 ml Results Result Diagram: 11/18/16 0445 11/18/16 0445 MILENA VIRK M.D. Nov 18, 2016 14:26
[2016-11-18 16:00] VITALS: BP 120/70; PULSE 79; RESP 17
[2016-11-18 20:00] VITALS: BP 147/67; PULSE 77; RESP 18
[2016-11-19 00:30] VITALS: BP 122/56; PULSE 68; RESP 16
[2016-11-19 05:00] VITALS: BP 121/57; PULSE 72; RESP 18
[2016-11-19] MEDS: PANTOPRAZOLE (EC) 40 MG TAB PO SCH (05:36)
[2016-11-19] MEDS: LEVOTHYROXINE 75 MCG TAB PO SCH (05:36)
[2016-11-19 08:14] VITALS: BP 140/65; RESP 16
[2016-11-19] MEDS: METOPROLOL (XL) 100 MG TAB PO SCH (09:14)
[2016-11-19] MEDS: ISOSORBIDE MONONITRATE(SR)30 MG TAB PO SCH (09:14)
[2016-11-19] MEDS: FERROUS SULFATE (EC) 325 MG TAB PO SCH ×3 (09:14→20:23)
[2016-11-19] MEDS: ENOXAPARIN 40 MG/0.4 ML SYG SC SCH (09:15)
--- NOTE | 2016-11-19 11:09 | CONS ---
Date/Time of Note Date/Time of Note DATE: 11/19/16 TIME: 11:07 Consult Date/Type/Reason Admit Date/Time Nov 15, 2016 at 06:10 Subjective Denies abd pain, feel tired still, no acute events overnight. Objective Vital Signs Date Time Temp Pulse Resp B/P Pulse Ox O2 Delivery O2 Flow Rate FiO2 11/19/16 08:14 98.8 71 16 140/65 94 11/19/16 05:00 Room Air 11/16/16 07:45 2.0 Intake and Output 11/18/16 11/18/16 11/19/16 15:00 23:00 07:00 Intake Total 360 ml 500 ml 480 ml Output Total 470 ml Balance 360 ml 500 ml 10 ml GENERAL: The patient is lying in bed, no acute distress. HEENT: Pupils equal, round, react to light. Extraocular muscles intact. NECK: Supple. No thyromegaly. LUNGS: Clear to auscultation bilaterally. CARDIOVASCULAR: S1, S2 heard. No rubs or gallops. ABDOMEN: less tenderness to palpation, wound vac in place, otherwise clean, dry , and intact. No rebound or guarding. MUSCULOSKELETAL: No lower extremity edema bilaterally. NEUROLOGIC: No focal deficits. Results/Medications Result Diagram: 11/18/16 0445 11/18/16 0445 Medications Current Medications Acetaminophen/ Hydrocodone Bitart ([place] (5/325)) 1 tab Q4H PRN PO PAIN LEVEL 4 -7 Last administered on 11/17/16 22:29; Admin Dose 1 TAB; Start 11/15/16 at 11: 00 Acetaminophen/ Hydrocodone Bitart ([place] (5/325)) 2 tab Q4H PRN PO PAIN LEVEL 7 -10; Start 11/15/16 at 11:00 Hydromorphone HCl (Dilaudid) 0.5 mg Q2 PRN IV PAIN; Start 11/15/16 at 11:00 Hydromorphone HCl (Dilaudid) 1 mg Q2 PRN IV PAIN Last administered on 11/16/16 10:22; Admin Dose 1 MG; Start 11/15/16 at 11:00 Docusate Sodium (Colace) 100 mg BID PRN PO CONSTIPATION; Start 11/15/16 at 11: 00 Bisacodyl (Dulcolax Supp) 10 mg BID PRN [place] CONSTIPATION; Start 11/15/16 at 11: 00 Sodium Biphosphate/ Sodium Phosphate ([place]leet Enema) 133 ml BID PRN [place] CONSTIPATION; Start 11/15/16 at 11:00 Enoxaparin Sodium (Lovenox) 40 mg DAILY SC Last administered on 11/19/16 09:15 ; Admin Dose 40 MG; Start 11/16/16 at 09:00 Ferrous Sulfate (Ferrous Sulfate (Ec)) 325 mg TID PO Last administered on 09:14; Admin Dose 325 MG; Start 11/17/16 at 14:00 Isosorbide Mononitrate (Imdur) 30 mg DAILY PO Last administered on 11/19/16 09: 14; Admin Dose 30 MG; Start 11/18/16 at 09:00 Metoprolol Succinate (Toprol Xl) 200 mg DAILY PO Last administered on 11/19/16 09:14; Admin Dose 200 MG; Start 11/18/16 at 09:00 Pantoprazole (Protonix Tab) 40 mg DAILY@06 PO Last administered on 11/19/16 05: 36; Admin Dose 40 MG; Start 11/18/16 at 06:00 Assessment/Plan Chief Complaint/Hosp Course ASSESSMENT AND PLAN: 86-year-old female with prior history of rectal cancer status post ileostomy takedown POD # 5. 1. Rectal cancer status post ileostomy takedown - POD # 5. - Continue to follow postoperative recommendations from surgery team including pain control medications and PT. Pt has wound vac as well. - Monitor labs in the morning as ordered. 2. History of breast cancer, prior mastectomy and radiation, chemotherapy in the past. - Continue to monitor for now. 3. History of hypertension. Blood pressure is stable. - monitor 4. High cholesterol. No present issues. - Continue to monitor for now. 5. Hypothyroidism. - continue Synthroid medication as well. 6. History of coronary artery disease status post cardiac stent placement 10 years ago. No present issues. - Continue to monitor for now. 7. Gastrointestinal prophylaxis. She is on H2 zara. 8. Deep venous thrombosis prophylaxis. She is on Lovenox. We will continue to follow. Problems: ROHIT JEFFREY Nov 19, 2016 11:09
[2016-11-19 12:45] VITALS: BP 122/61; PULSE 81; RESP 18
--- NOTE | 2016-11-19 14:43 | PDOCDIS ---
Discharge Instructions DIAGNOSIS Discharge Diagnosis: status post takedown of loop ileostomy CONDITION Patient Condition: Good HOME CARE INSTRUCTIONS: Diet Instructions: RegularSpecial Diet: soft diet ACTIVITY: Activity Restrictions: Avoid heavy lifting OTHER ORDERS: Other Orders: "Please call [phone] if any of fever, nausea, vomiting, discharge from wound, wound redness, increase or sudden pain, blood in stool or vomit, or any other unusual signs or symptoms. Also, please call the same number in a few days to schedule an appointment for your follow up visit. Patient may remove dressings tomorrow. Showers OK starting tomorrow. No swimming , hot tub or bath for 2 weeks. No lifting more than 25 lbs for 8 weeks." MILENA VIRK M.D. Nov 19, 2016 14:43
[2016-11-19] MEDS ORDERED: HYDR-3498 PO (14:44)
--- NOTE | 2016-11-19 14:46 | DS ---
Date/Time of Note Date/Time of Note DATE: 11/19/16 TIME: 14:45 Discharge Summary Admission/Discharge Info Admit Date/Time Nov 15, 2016 at 06:10 Discharge Date/Time Final Diagnosis 1. Biopsy-proven rectal cancer, moderately differentiated, grade 2. Perirectal lymph node involvement on staging axial images that included CT scan of the abdomen and pelvis. Clinical stage IIIc (T3b N2 M0). CEA 1.9; s/p completion of chemoradiation (5040 with concurrent Xeloda) ending on 05/11/16. Abdominal and pelvic MRI with IV and oral contrast on 07/07/16 showed slight decrease in size of mass and no obvious or new lymphadenopathy. S/p an otherwise uncomplicated but challenging oncologic laparoscopic laparoscopic hand-assisted very low anterior resection with takedown of splenic flexure of the colon with primary anastomosis and diverting loop ileostomy was performed with findings of rectal tumor approximately 3-4 cm from the anal verge without evidence of obvious metastatic disease on 08/16/16. 2. Breast cancer 2011. Status post mastectomy and hormonal therapy (no radiation therapy or chemotherapy per patient). 3. Anxiety 4. Hypertension 5. Coronary artery disease, status post angioplasty and stenting 3 approximate 10 years ago; transesophageal echocardiography without significant pathology per report 6. History of thyroid disease 7. Dyslipidemia 8. Hypertension 9. Arthritis 10. Mastectomy as above 11. Recent colonoscopy Patient Condition: Good Hospital Course Updated Clinical Summary: Patient is a very-pleasant 85-year-old lady with past medical history significant for breast cancer in the past and newly diagnosed rectal cancer, who was initially referred to us for surgical consultation regarding management of rectal cancer in March 2016. S/p completion of chemoradiation (5040 with concurrent Xeloda) ending on 05/11/16. Abdominal and pelvic MRI with IV and oral contrast on 07/07/16 showed slight decrease in size of mass and no obvious or new lymphadenopathy. S/p an otherwise uncomplicated but challenging oncologic laparoscopic laparoscopic hand-assisted very low anterior resection with takedown of splenic flexure of the colon with primary anastomosis and diverting loop ileostomy was performed with findings of rectal tumor approximately 3-4 cm from the anal verge without evidence of obvious metastatic disease on . Drain d/c'd 08/22/16. Uneventful recovery with discharge to SNF on 08/24/16. On the subsequent preoperative visit with me, the patient was doing well. S/p takedown of her ileostomy 11/15/16. Postoperatively, the patient did really well without any obvious evidence of postoperative complications or wound problems. Wound VAC was placed in the ileostomy site on postoperative day #3 and the patient tolerated this well. By time of discharge, the patient was able to tolerate adequate oral intake and had good symptom control with pain medications orally. Patient is discharged on 11/19/2016 with follow-up plans in the next 1-2 weeks and home health was set up to assist with wound VAC dressing changes at home. Comorbidities: 1. Biopsy-proven rectal cancer, moderately differentiated, grade 2. Perirectal lymph node involvement on staging axial images that included CT scan of the abdomen and pelvis. Clinical stage IIIc (T3b N2 M0). CEA 1.9; s/p completion of chemoradiation (5040 with concurrent Xeloda) ending on 05/11/16. Abdominal and pelvic MRI with IV and oral contrast on 07/07/16 showed slight decrease in size of mass and no obvious or new lymphadenopathy. S/p an otherwise uncomplicated but challenging oncologic laparoscopic laparoscopic hand-assisted very low anterior resection with takedown of splenic flexure of the colon with primary anastomosis and diverting loop ileostomy was performed with findings of rectal tumor approximately 3-4 cm from the anal verge without evidence of obvious metastatic disease on 08/16/16. 2. Breast cancer 2011. Status post mastectomy and hormonal therapy (no radiation therapy or chemotherapy per patient). 3. Anxiety 4. Hypertension 5. Coronary artery disease, status post angioplasty and stenting 3 approximate 10 years ago; transesophageal echocardiography without significant pathology per report 6. History of thyroid disease 7. Dyslipidemia 8. Hypertension 9. Arthritis 10. Mastectomy as above 11. Recent colonoscopy Internal medicine summary: ASSESSMENT AND PLAN: 86-year-old female with prior history of rectal cancer status post ileostomy takedown POD # 5. 1. Rectal cancer status post ileostomy takedown - POD # 5. - Continue to follow postoperative recommendations from surgery team including pain control medications and PT. Pt has wound vac as well. - Monitor labs in the morning as ordered. 2. History of breast cancer, prior mastectomy and radiation, chemotherapy in the past. - Continue to monitor for now. 3. History of hypertension. Blood pressure is stable. - monitor 4. High cholesterol. No present issues. - Continue to monitor for now. 5. Hypothyroidism. - continue Synthroid medication as well. 6. History of coronary artery disease status post cardiac stent placement 10 years ago. No present issues. - Continue to monitor for now. 7. Gastrointestinal prophylaxis. She is on H2 zara. 8. Deep venous thrombosis prophylaxis. She is on Lovenox. We will continue to follow. Home Meds Reported Medications Dexlansoprazole (Dexilant) 60 Mg Cap., 60 MG PO DAILY, #30 08/16/16 Isosorbide Mononitrate* (Isosorbide Mononitrate*) 30 Mg Tab.er.24h, 30 MG PO DAILY, TAB 07/21/16 Ferrous Sulfate* (Ferrous Sulfate*) 325 Mg Tabec, 325 MG PO TID, TAB 07/21/16 Nitroglycerin* (Nitrostat*) 0.4 Mg Tab.subl, 0.4 MG SL Q5MIN Y for CHEST PAIN, BOTTLE 07/21/16 Metoprolol Succinate* (Toprol XL*) 200 Mg Tab.sr.24h, 200 MG PO DAILY, #30 TAB 07/21/16 Ramipril (Ramipril) 2.5 Mg Capsule, 2.5 MG PO DAILY, CAP 07/21/16 Levothyroxine Sodium* (Synthroid*) 75 Mcg Tablet, 75 MCG PO BEFORE BREAKFAST, # 30 TAB 07/21/16 MILENA VIRK M.D. Nov 19, 2016 14:46
[2016-11-19 16:48] VITALS: BP 149/67; PULSE 73; RESP 16
[2016-11-19 20:51] VITALS: BP 108/58; RESP 18
[2016-11-20] VITALS: BP 138/62; PULSE 72; RESP 18
[2016-11-20 05:00] VITALS: BP 141/64; PULSE 74; RESP 16
[2016-11-20] MEDS: PANTOPRAZOLE (EC) 40 MG TAB PO SCH (06:45)
[2016-11-20] MEDS: LEVOTHYROXINE 75 MCG TAB PO SCH (06:46)
[2016-11-20 07:49] VITALS: BP 144/64; RESP 17
[2016-11-20] MEDS: FERROUS SULFATE (EC) 325 MG TAB PO SCH (09:31)
[2016-11-20] MEDS: METOPROLOL (XL) 100 MG TAB PO SCH (09:31)
[2016-11-20] MEDS: ISOSORBIDE MONONITRATE(SR)30 MG TAB PO SCH (09:32)
[2016-11-20] MEDS: ENOXAPARIN 40 MG/0.4 ML SYG SC SCH (09:33)
== END 2016-11-20 10:24 | disposition home health service (06) | DRG 330 ==
LOC: REC 11-15 06:10 → MS1 11-15 11:48 → REC 11-15 12:09 → MS1 11-15 13:05
PROVIDERS: ADMIT Transplant Surgery; ATTEND Transplant Surgery
PROC: 0DBB0ZZ Excision of Ileum, Open Approach (ICD-10-PCS; principal; 2016-11-15 07:30)
DX: Z43.2 Encounter for attention to ileostomy (principal); C20 Malignant neoplasm of rectum; I10 Essential (primary) hypertension; Z85.3 Personal history of malignant neoplasm of breast; Z95.5 Presence of coronary angioplasty implant and graft
CPT/HCPCS: 80048; 81001; 81003; 83605; 83735; 83880; 84100; 85025; 85610; 85730; 86850; 86900; 86901; 86920; 87086; 88305; J0295; J0330; J1170; J1644; J1650; J2370; J2405; J2710; J3010; J3475; J3480

== ENCOUNTER 2016-11-28 11:28 | Outpatient (CLI) | payer MEDICARE, OTHER ==
[~2016-11-28] VITALS: Ht 144.8 cm; Wt 46.4 kg
[~2016-11-28 11:28] MED LIST changes: +HYDR-3498 PO
[2016-11-28 11:33] VITALS: BP 130/61; PULSE 70; RESP 18; Ht 144.8 cm; Wt 46.4 kg
--- NOTE | 2016-11-28 12:07 | PN ---
Date/Time of Note Date/Time of Note DATE: 11/28/16 TIME: 11:59 Assessment/Plan Assessment/Plan Assessment/Plan [facility] Progress Note Date of Service: 11/28/16 Today's Impression & Plan: Overall doing well post op without major issues. No major wound problems. No further pain. Appreciate wound nurse input and care. Expect wound to completely heal over the course of the next few weeks. With above assessment, I've recommended the following for today: 1. Cont wound care 2. Increase fiber in diet for constipation (vegetables, prune juice, Colace, Metamucil) 3. Please send us pictures from next wound change 4. F/u with us in 2-3 weeks Thank you again for your great care of this very pleasant patient and wonderful family. If there are any questions, please feel free to call me at [phone]. TOTAL VISIT TIME: 20 minutes of which more than half was spent in [id number] discussion with the patient, possibly including family, as well as coordination of care between multiple physicians and providers. Disclaimer: Inadvertent spelling or grammatical errors are likely due to EHR/ dictation software use and do not reflect on the overall quality of patient care. Updated Clinical Summary: Patient is a very-pleasant 85-year-old lady with past medical history significant for breast cancer in the past and newly diagnosed rectal cancer, who was initially referred to us for surgical consultation regarding management of rectal cancer in March 2016. S/p completion of chemoradiation (5040 with concurrent Xeloda) ending on 05/11/16. Abdominal and pelvic MRI with IV and oral contrast on 07/07/16 showed slight decrease in size of mass and no obvious or new lymphadenopathy. S/p an otherwise uncomplicated but challenging oncologic laparoscopic laparoscopic hand-assisted very low anterior resection with takedown of splenic flexure of the colon with primary anastomosis and diverting loop ileostomy was performed with findings of rectal tumor approximately 3-4 cm from the anal verge without evidence of obvious metastatic disease on . Drain d/c'd 08/22/16. Uneventful recovery with discharge to SNF on 08/24/16. On the subsequent preoperative visit with me, the patient was doing well. S/p takedown of her ileostomy 11/15/16. Postoperatively, the patient did really well without any obvious evidence of postoperative complications or wound problems. Wound VAC was placed in the ileostomy site on postoperative day #3 and the patient tolerated this well. By time of discharge, the patient was able to tolerate adequate oral intake and had good symptom control with pain medications orally. Patient is discharged on 11/19/2016. Comorbidities: 1. Biopsy-proven rectal cancer, moderately differentiated, grade 2. Perirectal lymph node involvement on staging axial images that included CT scan of the abdomen and pelvis. Clinical stage IIIc (T3b N2 M0). CEA 1.9; s/p completion of chemoradiation (5040 with concurrent Xeloda) ending on 05/11/16. Abdominal and pelvic MRI with IV and oral contrast on 07/07/16 showed slight decrease in size of mass and no obvious or new lymphadenopathy. S/p an otherwise uncomplicated but challenging oncologic laparoscopic laparoscopic hand-assisted very low anterior resection with takedown of splenic flexure of the colon with primary anastomosis and diverting loop ileostomy was performed with findings of rectal tumor approximately 3-4 cm from the anal verge without evidence of obvious metastatic disease on 08/16/16. 2. Breast cancer 2011. Status post mastectomy and hormonal therapy (no radiation therapy or chemotherapy per patient). 3. Anxiety 4. Hypertension 5. Coronary artery disease, status post angioplasty and stenting 3 approximate 10 years ago; transesophageal echocardiography without significant pathology per report 6. History of thyroid disease 7. Dyslipidemia 8. Hypertension 9. Arthritis 10. Mastectomy as above 11. Recent colonoscopy Subjective: No major events or complaints since d/c; overall feels well with constipation the major complaint; no major abd pain and no longer on pain medications; no n/v ; + BM; no sob or cp; + flatus; + activity Objective: Vitals: See below Exam: GENERAL: On exam, the patient was sitting in a chair and appeared to be comfortable and in no acute distress. ABDOMEN: Soft, nontender and nondistended. Incision wound vac in place without any evidence of underlying erythema, edema, discharge, or hernia. There are no peritoneal signs or guarding. SKIN: Skin appears to be pink and feels warm to touch. NEUROLOGIC: Patient is awake, alert, and follows commands appropriately. Exam/Review of Systems Vital Signs Vitals Vital Signs Date Time Temp Pulse Resp B/P Pulse Ox O2 Delivery O2 Flow Rate FiO2 11/28/16 11:33 97.6 70 18 130/61 97 Room Air MILENA VIRK M.D. Nov 28, 2016 12:07
== END 2016-11-28 15:59 | disposition home or self-care (01) ==
LOC: HPC 11:28
PROVIDERS: ATTEND Transplant Surgery
DX: C20 Malignant neoplasm of rectum (principal); F41.9 Anxiety disorder, unspecified; I10 Essential (primary) hypertension; I25.10 Atherosclerotic heart disease of native coronary artery without angina pectoris; E78.5 Hyperlipidemia, unspecified; M19.90 Unspecified osteoarthritis, unspecified site; Z90.13 Acquired absence of bilateral breasts and nipples; Z85.3 Personal history of malignant neoplasm of breast
CPT/HCPCS: G0463

== ENCOUNTER 2016-12-14 13:57 | Outpatient (CLI) | payer MEDICARE, OTHER ==
[~2016-12-14] VITALS: Ht 144.8 cm; Wt 46.4 kg
[2016-12-14 14:03] VITALS: BP 129/67; PULSE 80; RESP 18; Ht 144.8 cm; Wt 46.4 kg
--- NOTE | 2016-12-14 14:30 | PN ---
Date/Time of Note Date/Time of Note DATE: 12/14/16 TIME: 14:04 Assessment/Plan Assessment/Plan Assessment/Plan [facility] Progress Note Date of Service: 12/14/16 Today's Impression & Plan: Overall doing well post op without major issues. No major wound problems with the exception of retained white sponge from wound vac that did not appear to have been changed recently. Small cavity left behind, but should heal with further moist gauze dressing changes. No further need for wound vac given small diameter of the wound. Will need to work through the logistics of dressing changes at home. Expect wound to completely heal over the course of the next few weeks. No further reported issues with constipation with increased fiber intake. With above assessment, I've recommended the following for today: 1. Cont wound care, ideally with BID or TID wet to moist gauze dressing changes 2. Cont high fiber diet 3. F/u with us in 2-3 weeks Thank you again for your great care of this very pleasant patient and wonderful family. If there are any questions, please feel free to call me at [phone]. TOTAL VISIT TIME: 20 minutes of which more than half was spent in [id number] discussion with the patient, possibly including family, as well as coordination of care between multiple physicians and providers. Disclaimer: Inadvertent spelling or grammatical errors are likely due to EHR/ dictation software use and do not reflect on the overall quality of patient care. Updated Clinical Summary: Patient is a very-pleasant 85-year-old lady with past medical history significant for breast cancer in the past and newly diagnosed rectal cancer, who was initially referred to us for surgical consultation regarding management of rectal cancer in March 2016. S/p completion of chemoradiation (5040 with concurrent Xeloda) ending on 05/11/16. Abdominal and pelvic MRI with IV and oral contrast on 07/07/16 showed slight decrease in size of mass and no obvious or new lymphadenopathy. S/p an otherwise uncomplicated but challenging oncologic laparoscopic laparoscopic hand-assisted very low anterior resection with takedown of splenic flexure of the colon with primary anastomosis and diverting loop ileostomy was performed with findings of rectal tumor approximately 3-4 cm from the anal verge without evidence of obvious metastatic disease on . Drain d/c'd 08/22/16. Uneventful recovery with discharge to SNF on 08/24/16. On the subsequent preoperative visit with me, the patient was doing well. S/p takedown of her ileostomy 11/15/16. Postoperatively, the patient did really well without any obvious evidence of postoperative complications or wound problems. Wound VAC was placed in the ileostomy site on postoperative day #3 and the patient tolerated this well. By time of discharge, the patient was able to tolerate adequate oral intake and had good symptom control with pain medications orally. Patient is discharged on 11/19/2016. Comorbidities: 1. Biopsy-proven rectal cancer, moderately differentiated, grade 2. Perirectal lymph node involvement on staging axial images that included CT scan of the abdomen and pelvis. Clinical stage IIIc (T3b N2 M0). CEA 1.9; s/p completion of chemoradiation (5040 with concurrent Xeloda) ending on 05/11/16. Abdominal and pelvic MRI with IV and oral contrast on 07/07/16 showed slight decrease in size of mass and no obvious or new lymphadenopathy. S/p an otherwise uncomplicated but challenging oncologic laparoscopic laparoscopic hand-assisted very low anterior resection with takedown of splenic flexure of the colon with primary anastomosis and diverting loop ileostomy was performed with findings of rectal tumor approximately 3-4 cm from the anal verge without evidence of obvious metastatic disease on 08/16/16. 2. Breast cancer 2011. Status post mastectomy and hormonal therapy (no radiation therapy or chemotherapy per patient). 3. Anxiety 4. Hypertension 5. Coronary artery disease, status post angioplasty and stenting 3 approximate 10 years ago; transesophageal echocardiography without significant pathology per report 6. History of thyroid disease 7. Dyslipidemia 8. Hypertension 9. Arthritis 10. Mastectomy as above 11. Recent colonoscopy Subjective: No major events or complaints; overall feels well with no more constipation complaint; no major abd pain and no longer on pain medications; no n/v; + BM; no sob or cp; + flatus; + activity Objective: Vitals: See below Exam: GENERAL: On exam, the patient was sitting in a chair and appeared to be comfortable and in no acute distress. ABDOMEN: Soft, nontender and nondistended. Incision wound vac in place without any evidence of underlying erythema, edema, discharge, or hernia. Upon removal of the wound vac, I found a white sponge that appeared to have been there perhaps for more than a few days. Removal without difficulty, but the remaining cavity was deep with small diameter. I placed a gauze inside. There are no peritoneal signs or guarding. SKIN: Skin appears to be pink and feels warm to touch. NEUROLOGIC: Patient is awake, alert, and follows commands appropriately. MILENA VIRK M.D. Dec 14, 2016 14:27
== END 2016-12-14 17:00 | disposition home or self-care (01) ==
LOC: HPC 13:57
PROVIDERS: ATTEND Transplant Surgery
DX: C20 Malignant neoplasm of rectum (principal); F41.9 Anxiety disorder, unspecified; I10 Essential (primary) hypertension; I25.10 Atherosclerotic heart disease of native coronary artery without angina pectoris; E78.5 Hyperlipidemia, unspecified; M19.90 Unspecified osteoarthritis, unspecified site; Z90.10 Acquired absence of unspecified breast and nipple; Z98.61 Coronary angioplasty status; Z85.3 Personal history of malignant neoplasm of breast
CPT/HCPCS: G0463

== ENCOUNTER 2017-01-04 13:31 | Outpatient (CLI) | payer MEDICARE, OTHER ==
[~2017-01-04] VITALS: Ht 144.8 cm; Wt 47.0 kg
[~2017-01-04 13:31] MED LIST changes: -HYDR-3498 PO
[2017-01-04 13:37] VITALS: BP 119/58; PULSE 71; RESP 18; Ht 144.8 cm; Wt 47.0 kg
--- NOTE | 2017-01-04 14:45 | PN ---
Date/Time of Note Date/Time of Note DATE: 01/04/17 TIME: 14:36 Assessment/Plan Assessment/Plan Assessment/Plan [facility] Progress Note Date of Service: 01/04/17 Today's Impression & Plan: Overall doing well post op without major issues. No major wound problems. Previous ostomy site completely healed. Frequent BM's (4-5 per day) noted without obvious diarrhea. Suspect will improve in time. Still very anxious ( baseline) and would like one more visit with me prior to signing off. I encouraged continued surveillance and care with medical team. With above assessment, I've recommended the following for today: 1. No more wound care needed 2. F/u with medical/oncologic team 3. Happy to see her in 3-4 weeks (mainly due to patient's request) Thank you again for your great care of this very pleasant patient and wonderful family. If there are any questions, please feel free to call me at [phone]. TOTAL VISIT TIME: 20 minutes of which more than half was spent in [id number] discussion with the patient, possibly including family, as well as coordination of care between multiple physicians and providers. Disclaimer: Inadvertent spelling or grammatical errors are likely due to EHR/ dictation software use and do not reflect on the overall quality of patient care. Updated Clinical Summary: Patient is a very-pleasant 85-year-old lady with past medical history significant for breast cancer in the past and newly diagnosed rectal cancer, who was initially referred to us for surgical consultation regarding management of rectal cancer in March 2016. S/p completion of chemoradiation (5040 with concurrent Xeloda) ending on 05/11/16. Abdominal and pelvic MRI with IV and oral contrast on 07/07/16 showed slight decrease in size of mass and no obvious or new lymphadenopathy. S/p an otherwise uncomplicated but challenging oncologic laparoscopic laparoscopic hand-assisted very low anterior resection with takedown of splenic flexure of the colon with primary anastomosis and diverting loop ileostomy was performed with findings of rectal tumor approximately 3-4 cm from the anal verge without evidence of obvious metastatic disease on . Drain d/c'd 08/22/16. Uneventful recovery with discharge to SNF on 08/24/16. On the subsequent preoperative visit with me, the patient was doing well. S/p takedown of her ileostomy 1/31/17. Postoperatively, the patient did really well without any obvious evidence of postoperative complications or wound problems. Wound VAC was placed in the ileostomy site on postoperative day #3 and the patient tolerated this well. By time of discharge, the patient was able to tolerate adequate oral intake and had good symptom control with pain medications orally. Patient is discharged on 11/19/2016. Comorbidities: 1. Biopsy-proven rectal cancer, moderately differentiated, grade 2. Perirectal lymph node involvement on staging axial images that included CT scan of the abdomen and pelvis. Clinical stage IIIc (T3b N2 M0). CEA 1.9; s/p completion of chemoradiation (5040 with concurrent Xeloda) ending on 05/11/16. Abdominal and pelvic MRI with IV and oral contrast on 07/07/16 showed slight decrease in size of mass and no obvious or new lymphadenopathy. S/p an otherwise uncomplicated but challenging oncologic laparoscopic laparoscopic hand-assisted very low anterior resection with takedown of splenic flexure of the colon with primary anastomosis and diverting loop ileostomy was performed with findings of rectal tumor approximately 3-4 cm from the anal verge without evidence of obvious metastatic disease on 08/16/16. 2. Breast cancer 2011. Status post mastectomy and hormonal therapy (no radiation therapy or chemotherapy per patient). 3. Anxiety 4. Hypertension 5. Coronary artery disease, status post angioplasty and stenting 3 approximate 10 years ago; transesophageal echocardiography without significant pathology per report 6. History of thyroid disease 7. Dyslipidemia 8. Hypertension 9. Arthritis 10. Mastectomy as above 11. Recent colonoscopy Subjective: No major events or complaints; overall feels well; only issue is 3-4 formed BM' s per day; no constipation complaints; no major abd pain; no n/v; + BM; no sob or cp; + flatus; + activity Objective: Vitals: See below Exam: GENERAL: On exam, the patient was sitting in a chair and appeared to be comfortable and in no acute distress. ABDOMEN: Soft, nontender and nondistended. Incisions c/d/i w/o obvious e/e/d/h; previous ostomy site completely healed. There are no peritoneal signs or guarding. SKIN: Skin appears to be pink and feels warm to touch. NEUROLOGIC: Patient is awake, alert, and follows commands appropriately. Exam/Review of Systems Vital Signs Vitals Vital Signs Date Time Temp Pulse Resp B/P Pulse Ox O2 Delivery O2 Flow Rate FiO2 01/04/17 13:37 97.6 71 18 119/58 99 Room Air MILENA VIRK M.D. Jan 04, 2017 14:45
== END 2017-01-04 17:00 | disposition home or self-care (01) ==
LOC: HPC 13:31
PROVIDERS: ATTEND Transplant Surgery
DX: C20 Malignant neoplasm of rectum (principal); F41.9 Anxiety disorder, unspecified; I10 Essential (primary) hypertension; I25.10 Atherosclerotic heart disease of native coronary artery without angina pectoris; E07.9 Disorder of thyroid, unspecified; E78.5 Hyperlipidemia, unspecified; M19.90 Unspecified osteoarthritis, unspecified site; Z98.61 Coronary angioplasty status; Z85.3 Personal history of malignant neoplasm of breast; Z90.10 Acquired absence of unspecified breast and nipple
CPT/HCPCS: G0463

== ENCOUNTER 2017-03-15 12:59 | Outpatient (CLI) | payer MEDICARE, OTHER ==
[~2017-03-15] VITALS: Ht 144.8 cm; Wt 50.0 kg
[2017-03-15 13:16] VITALS: Ht 144.8 cm; Wt 50.0 kg
[2017-03-15 13:17] VITALS: BP 126/60; PULSE 80; RESP 18
--- NOTE | 2017-03-15 14:19 | PN ---
Date/Time of Note Date/Time of Note DATE: 03/15/17 TIME: 14:11 Assessment/Plan Assessment/Plan Assessment/Plan [facility] Progress Note Date of Service: 01/13/17 Today's Impression & Plan: Overall continuing to do well post op without major issues. No major wound problems. Previous ostomy site completely healed. Scheduled for surveillance imaging in a few months. Still very anxious (baseline). I'm overall very happy about her outcome so far and encouraged continued surveillance and care with medical team. With above assessment, I've recommended the following for today: 1. F/u with PCP 2. F/u with oncologic team 3. F/u with us prn Thank you again for your great care of this very pleasant patient and wonderful family. If there are any questions, please feel free to call me at [phone]. TOTAL VISIT TIME: 20 minutes of which more than half was spent in [id number] discussion with the patient, possibly including family, as well as coordination of care between multiple physicians and providers. Disclaimer: Inadvertent spelling or grammatical errors are likely due to EHR/ dictation software use and do not reflect on the overall quality of patient care. Updated Clinical Summary: Patient is a very-pleasant 85-year-old lady with past medical history significant for breast cancer in the past and newly diagnosed rectal cancer, who was initially referred to us for surgical consultation regarding management of rectal cancer in March 2016. S/p completion of chemoradiation (5040 with concurrent Xeloda) ending on 05/11/16. Abdominal and pelvic MRI with IV and oral contrast on 07/07/16 showed slight decrease in size of mass and no obvious or new lymphadenopathy. S/p an otherwise uncomplicated but challenging oncologic laparoscopic laparoscopic hand-assisted very low anterior resection with takedown of splenic flexure of the colon with primary anastomosis and diverting loop ileostomy was performed with findings of rectal tumor approximately 3-4 cm from the anal verge without evidence of obvious metastatic disease on . Drain d/c'd 08/22/16. Uneventful recovery with discharge to SNF on 08/24/16. On the subsequent preoperative visit with me, the patient was doing well. S/p takedown of her ileostomy 11/15/16. Postoperatively, the patient did really well without any obvious evidence of postoperative complications or wound problems. Wound VAC was placed in the ileostomy site on postoperative day #3 and the patient tolerated this well. By time of discharge, the patient was able to tolerate adequate oral intake and had good symptom control with pain medications orally. Patient is discharged on 11/19/2016. Comorbidities: 1. Biopsy-proven rectal cancer, moderately differentiated, grade 2. Perirectal lymph node involvement on staging axial images that included CT scan of the abdomen and pelvis. Clinical stage IIIc (T3b N2 M0). CEA 1.9; s/p completion of chemoradiation (5040 with concurrent Xeloda) ending on 05/11/16. Abdominal and pelvic MRI with IV and oral contrast on 07/07/16 showed slight decrease in size of mass and no obvious or new lymphadenopathy. S/p an otherwise uncomplicated but challenging oncologic laparoscopic laparoscopic hand-assisted very low anterior resection with takedown of splenic flexure of the colon with primary anastomosis and diverting loop ileostomy was performed with findings of rectal tumor approximately 3-4 cm from the anal verge without evidence of obvious metastatic disease on 08/16/16. 2. Breast cancer 2011. Status post mastectomy and hormonal therapy (no radiation therapy or chemotherapy per patient). 3. Anxiety 4. Hypertension 5. Coronary artery disease, status post angioplasty and stenting 3 approximate 10 years ago; transesophageal echocardiography without significant pathology per report 6. History of thyroid disease 7. Dyslipidemia 8. Hypertension 9. Arthritis 10. Mastectomy as above 11. Recent colonoscopy Subjective: No major events or complaints; overall feels well; no further complaints about BM's; no constipation complaints; no major abd pain; no n/v; + BM; no sob or cp ; + flatus; + activity Objective: Vitals: See below Exam: GENERAL: On exam, the patient was sitting in a chair and appeared to be comfortable and in no acute distress. ABDOMEN: Soft, nontender and nondistended. Incisions c/d/i w/o obvious e/e/d/h; previous ostomy site completely healed. There are no peritoneal signs or guarding. SKIN: Skin appears to be pink and feels warm to touch. NEUROLOGIC: Patient is awake, alert, and follows commands appropriately. Exam/Review of Systems Vital Signs Vitals Vital Signs Date Time Temp Pulse Resp B/P Pulse Ox O2 Delivery O2 Flow Rate FiO2 03/15/17 13:17 98.3 80 18 126/60 97 Room Air MILENA VIRK M.D. March 15, 2017 14:19
== END 2017-03-15 15:37 | disposition home or self-care (01) ==
LOC: HPC 12:59
PROVIDERS: ATTEND Transplant Surgery
DX: Z08 Encounter for follow-up examination after completed treatment for malignant neoplasm (principal); Z85.048 Personal history of other malignant neoplasm of rectum, rectosigmoid junction, and anus; Z85.3 Personal history of malignant neoplasm of breast; I10 Essential (primary) hypertension; I25.10 Atherosclerotic heart disease of native coronary artery without angina pectoris; Z98.61 Coronary angioplasty status; Z90.10 Acquired absence of unspecified breast and nipple; E78.5 Hyperlipidemia, unspecified
CPT/HCPCS: G0463